=== PATIENT | female | born 1970 | race Caucasian/White ===

== ENCOUNTER → 2016-06-11 | Outpatient (CLI) | payer BC ==
[2016-06-11 08:06] LABS: BASO # 0.1 10*3/uL (0.0-0.1); BASO % 0.9 % (0.0-1.0); EOS # 0.2 10*3/uL (0.0-0.4); EOS % 2.3 % (1.0-4.0); HEMATOCRIT 42.4 % (37.0-47.0); HEMOGLOBIN 14.7 g/dl (12.0-16.0); LYMPH # 2.1 10*3/uL (1.3-4.4); LYMPH % 23.2 % (27.0-41.0); MEAN CELL VOLUME 88.3 fl (81.0-99.0); MEAN CORPUSCULAR HGB 30.6 pg (27.0-31.0); MEAN CORPUSCULAR HGB CONC 34.7 g/dl (33.0-37.0); MEAN PLATELET VOLUME 10.8 fl (9.6-12.3); MONO # 0.7 10*3/uL (0.1-1.0); MONO % 8.4 % (3.0-9.0); NEUT # 5.7 10*3/uL (2.3-7.9); NEUT % 64.9 % (47.0-73.0); PLATELET COUNT AUTOMATED 269 10*3/uL (130-400); RED CELL DISTRI WIDTH 12.8 % (0-14.5); WHITE BLOOD COUNT 8.8 10*3/uL (4.8-10.8)
[2016-06-11 08:34] LABS: ALBUMIN 4.1 gm/dl (3.1-4.5); ALKALINE PHOSPHATASE 111 U/L (45-117); BILIRUBIN, TOTAL 0.3 mg/dl (0.2-1.0); BUN 15 mg/dl (7-24); CARBON DIOXIDE 25 mmol/L (21-32); CHLORIDE 111 mmol/L (98-107); CHOLESTEROL 177 mg/dL (<200); EST GLOM FILT AFRICAN AMERICAN > 60 ml/min; GLUCOSE 91 mg/dL (65-99); HDL CHOLESTEROL 50 mg/dl (40-60); LDL CHOLESTEROL 109 mg/dL (9-159); POTASSIUM 3.9 mmol/L (3.5-5.1); SGOT/AST 14 IU/L (3-35); SGPT/ALT 21 U/L (12-78); SODIUM 145 mmol/L (136-145); TOTAL PROTEIN 7.4 gm/dL (6.4-8.2); TRIGLYCERIDES 90 mg/dl (<150); VLDL CHOLESTEROL 18 mg/dL (6-40)
== END | disposition home or self-care (01) ==
LOC: LAB 06:49
PROVIDERS: Internal Medicine
DX: E06.9 Thyroiditis, unspecified (principal); E11.9 Type 2 diabetes mellitus without complications; E66.09 Other obesity due to excess calories

== ENCOUNTER 2016-10-02 10:33 | Emergency (ER) | payer OTHER ==
[~2016-10-02] VITALS: Ht 162.5 cm; Wt 81.6 kg
[2016-10-02] MEDS ORDERED: ZYRTEC10 M3 PO (10:42)
[2016-10-02] MEDS ORDERED: CLARITIN10 MG PO (10:50)
[2016-10-02] MEDS ORDERED: ROBITUSSIN DM 105 ML PO (10:50)
[2016-10-02] MEDS ORDERED: FLONASE ALLERG9.9 ML NAS (10:50)
[2016-10-02] MEDS ORDERED: PREDNISONE10 MG PO (10:50)
[2016-10-02] MEDS ORDERED: LEVAQUIN750 M1 PO (12:20)
== END 2016-10-02 12:47 | disposition home or self-care (01) ==
LOC: ED 10:33
DX: J18.9 Pneumonia, unspecified organism (principal); F17.200 Nicotine dependence, unspecified, uncomplicated; Z88.6 Allergy status to analgesic agent; Z88.8 Allergy status to other drugs, medicaments and biological substances

== ENCOUNTER → 2016-10-05 | Outpatient (CLI) | payer OTHER ==
[~2016-10-05] MED LIST: CLARITIN10 MG PO; FLONASE ALLERG9.9 ML NAS; LEVAQUIN750 M1 PO; PREDNISONE10 MG PO; ROBITUSSIN DM 105 ML PO; ZYRTEC10 M3 PO
== END ==
LOC: MAMMO 14:16
DX: Z12.31 Encounter for screening mammogram for malignant neoplasm of breast (principal)